=== PATIENT | female | born 1960 | race Caucasian/White ===

== ENCOUNTER 2021-12-08 11:27 | Emergency (ER) | payer OTHER ==
[~2021-12-08] VITALS: Ht 162.6 cm; Wt 70.3 kg
[~2021-12-08 11:27] MED LIST: BUPR150T7 PO; CIPR500T4 PO; HYDR-5191 PO; IBUP-2213 PO; MIRT-92 PO; TEMA15CA24 PO; TRAZ-471 PO
[2021-12-08 12:12] VITALS: BP 110/74
[2021-12-08] MEDS ORDERED: GABA300C PO (12:26)
--- NOTE | 2021-12-08 12:32 | NUR ---
Patient discharged with v/s stable. Written and verbal after care instructions given and explained. Patient alert, oriented and verbalized understanding of instructions. Ambulatory with steady gait. All questions addressed prior to discharge. ID band removed. Patient advised to follow up with PMD. Rx of gabapentin given. Patient educated on indication of medication including possible reaction and side effects. Opportunity to ask questions provided and answered.
== END 2021-12-08 12:32 | disposition home or self-care (01) ==
LOC: MED 11:27
DX: M79.605 Pain in left leg (principal); M79.604 Pain in right leg; G62.9 Polyneuropathy, unspecified; Z90.49 Acquired absence of other specified parts of digestive tract; Z79.899 Other long term (current) drug therapy; Z85.42 Personal history of malignant neoplasm of other parts of uterus; Z91.013 Allergy to seafood
CPT/HCPCS: 99283